=== PATIENT | female | born 1980 | race Caucasian/White ===

== ENCOUNTER → 2024-12-28 08:43 | Outpatient (BNVA) | payer OTHER, SELFPAY | PROVIDERS: Visit Provider Physician Assistant Surgical ==

== ENCOUNTER 2025-01-11 08:50 | Outpatient (AMB) | payer OTHER, SELFPAY ==
--- OUTSIDE RECORDS SUMMARY | 2025-01-11 09:03 | XMS_ITS | Data Portability ---
Author Organization [facility], [facility] Address [address] [place] [address] Care Team Providers Care Financing Analyst Name Role Phone JOSE FIGUEROA Primary Care Provider [phone] Assessment Encounter Date Assessment Date Assessment LastModified by Organization Details LastModified Time 08/26/2024 08/26/2024 43-year-old aewdp-fonp-hxxsygy t female presents today reporting on June 24, 2024 she fell off a horse injuring the radial aspect of her right wrist. She has had 2 negative sets of x-rays about her wrist so far, but with persistent significant pain at the snuffbox of her right wrist, as well as the base of the first metacarpal. Her x-rays today demonstrated a possible articular defect noted of the base of the first metacarpal, without any obvious evidence of scaphoid fracture. Due to her persistent radial sided right wrist pain, I recommended MRI to evaluate for possible cartilage defect of the base of the first metacarpal, as well as possible bony contusion of the right scaphoid bone. Will plan to follow-up in 2 to 3 weeks for review MRI, sooner if required Not available 08/26/2024 16:18:16 09/09/2024 09/09/2024 43-year-old runit-muxs-sraiqjm t female presents today for review MRI right wrist after an injury sustained on June 24, 2024 with MRI demonstrating no obvious evidence of fractures appreciated. She does have an incidental note of a ganglion cyst dorsally about her wrist, as well as an effusion of the pisotriquetral joint but these are more than likely incidental findings as she does not have any symptoms over these areas. At this point she may be dealing with some sequelae from her right wrist sprain. I recommended utilizing a thumb spica splint, and offered anti-inflammatorie s versus an oral steroid taper, but she was to pursue with the splint and activity modification. She will follow-up symptomatically going forward. Not available 09/09/2024 16:14:05 Plan of Treatment Reminders Order Date Submit Date Provider Last Modified By Organization Details Last Modified Time Details Appointments RECHECK 15 2024 03:15P Olena Amanda PA-C Not available Not available Not available Lab None recorded. Referral physical therapist referral - DIAGNOSIS : RIGHT POSTERIOR TEDONITIS EVAL AND TX: RIGHT POSTERIOR /FOOT TENDONITI S SPECIAL INSTRUCTI ONS: STRENTHEN ING FREQUENCY : 2-3 TIMES/WEE K DURACTION : 4-6 WEEKS 2024 025 [email or web address] Not available 01/08/2025 11:31:18 Procedures None recorded. Surgeries None recorded. Imaging XR, foot, 3 or more view - uc rm 5 r foot 3v 2024 025 [email or web address] [facility] Office, [address], [place], [address], 12/24/2024 10:24:14 XR, wrist, 3 or more view - room 105 3v R wrist + josue nurse intern views 2024 025 [email or web address] [facility] Office, [address], [place], [address], 09/14/2024 15:17:18 MRI, wrist, w/o contrast - Right wrist pain -- eval cartilage defect of the base of the 1st MC & bony contusion of scaphoid bone 2024 [email or web address], [address], [place], [address], 09/14/2024 15:17:19 Medication Orders diclofena c sodium 75 mg tablet,de layed release 2024 025 [id number], [address] [place] [address], [address], 01/08/2025 11:20:05 Patient TargetsNo targets recorded. Patient InstructionsNo instructions recorded. Reason for Referral Physical Therapist Referral for Tendinitis of right posterior tibial tendon DIAGNOSIS: RIGHT POSTERIOR TEDONITIS EVAL AND TX: RIGHT POSTERIOR/FOOT TENDONITISSPECIAL INSTRUCTIONS: STRENTHENING FREQUENCY: 2-3 TIMES/WEEKDURACTION: 4-6 WEEKS Referring Physician: Marion Amanda, Orthopedic Surgery, Encounter Date: 01/08/2025 Results Created Date Observation Date Name Description Value Unit Range Abnormal Flag Note LastModifiedBy Organization Detail LastModifiedTime 08/26/19 25 08/26/2024 XR, wrist , 3 or more view [email or web address] ?Encry pted=s hAaTro YD8dLq bEUv6g %2BXZw aYqtaq 0bqfl% 2Fg9IQ a4ajBk vP9nXo QUaueC m3YtLR FvZlJ J8mAn HZtai3 6h0745 AC0Kqb HWEUaW lKiQtr MwF INTERFACE [facility] [address], [place], [address], 08/26/2024 15:42:07 08/26/19 25 08/26/2024 XR, wrist , 3 or more view [email or web address] ?Encry pted=s hAaTro YD8dLq bEUv6g %2BXZw aYqtaq 0bqfl% 2Fg9IQ a4ajBk vP9nXo QUaueC m3YtLR FvZlgJ JJ8mAn HZtai3 5w3669 AC0Kqb HWEUaW lKiQtr MwF INTERFACE [facility] [address], [place], [address], 08/26/2024 15:42:09 09/08/19 25 09/05/2024 MRI, wrist , w/o contr ast No observ ation record ed. [email or web address] [facility] [address] [facility] [facility] [address], [place], [address], 09/15/2024 12:05:32 12/25/19 25 12/24/2024 XR, foot, 3 or more view [email or web address] ?Encry pted=s hAaTro YD8dLq bEUv6g %2BXZw aYqtaq 0bqfl% 2Fg9IQ a4ajBk vP9nXo QUaueC m3YtLR FvZlgJ JJ8mAn HZtai3 3c7835 AC0Kla H6GUqu gKiQtr MwF INTERFACE [facility] [address] [facility] [address], [place], [address], 12/24/2024 08:47:17 12/25/19 25 12/24/2024 XR, foot, 3 or more view [email or web address] ?Encry pted=s hAaTro YD8dLq bEUv6g %2BXZw aYqtaq 0bqfl% 2Fg9IQ a4ajBk vP9nXo QUaueC m3YtLR FvZlgJ [place] HZtai3 3g4006 AC0Kla H6GUqu gKiQtr MwF INTERFACE [facility] [address] [facility] [address], [place], [address], 12/24/2024 08:47:19 Result Notes Documentation Provider Name and Address Organization Details Recorded Time Xr, Wrist, 3 Or More View : [email or web address] Encrypted=wpMgEtcJP1bOdyN Uv6g%8TNRzeRynhm8dtkn%2Fg 0ECa8uyTzdZ9dPdXCqtvYo8Af LMCaWluUSN2uEzWXhoe75a758 1NR8MnpHIRSfPqJbDqxVlU Not Available [facility] 08/26/2024 15:42: 08 Xr, Wrist, 3 Or More View : [email or web address] Encrypted=phHvZnsXX8iXgvI Uv6g%9BHJyjWqnlp8egiz%2Fg 4YQc8stNdyX1gOpKCiuvWa5Jm YRPcAojWNB3mPhVIvmz14v072 1EW4QyoORLSuPzKnAzjFoT Not Available [facility] 08/26/2024 15:42: 09 Xr, Foot, 3 Or More View : [email or web address] Encrypted=tcHfPrbTM9yXwzZ Uv6g%6QAWrbNndwj3ooxa%2Fg 4DTh2opUrhS1jQcLNyyoTy5Zi MWFjKojTJT7jVbSCuwv73l398 0MK6OkdO7ODrfvYhFzlKyQ Not Available [facility] 12/24/2024 08:47: 18 Xr, Foot, 3 Or More View : [email or web address] Encrypted=loMkKymMK5mHcqI Uv6g%9AKNaiJphag9zlrv%2Fg 4SEi1uoMjuR3hAaKXnkfTh7Wl WXDpKbdLBU2yJtWBcik60l150 0NX4RwpX0TJyboIaAbjGgD Not Available [facility] 12/24/2024 08:47: 19 Problems Name Problem SNOMED Code Status Onset Date Resolution Date Notes Provider Name and Address Organization Details Recorded Time Sprain of right wrist [id number] Active 2024 Jason Lanier PA-C [address] [place] [address] [address], [place], [address] , [facility] 16:14:11 Problem Notes None recorded. Medical Equipment None Reported. Medications Name Sig Start Date Stop Date Status Note LastModified by Organization Details LastModified Time venlafaxine ER 37.5 mg capsule,exte nded release 24 hr TAKE 1 CAPSULE BY MOUTH EVERY DAY active Not Available Not Available No t Available venlafaxine ER 75 mg capsule,exte nded release 24 hr TAKE 1 CAPSULE BY MOUTH EVERY DAY active Not Available Not Available No t Available fluconazole 150 mg tablet TAKE 1 TABLET BY MOUTH ONCE FOR 1 DAY active Not Available Not Available No t Available rizatriptan 10 mg tablet PLEASE SEE ATTACHED FOR DETAILED DIRECTIONS active Not Available Not Available N ot Available propranolol 60 mg tablet TAKE 1 TABLET BY MOUTH TWICE A DAY FOR 30 DAYS active Not Available Not Available No t Available dextroamphet amine-amphet amine 20 mg tablet TAKE 1 TABLET BY MOUTH TWICE A DAY (IN THE MORNING AND 1 PM) DIRECTED 30 DAYS active Not Available Not Available No t Available diclofenac sodium 75 mg tablet,delay ed release Take 1 tablet twice a day by oral route for 14 days. 2024 active Not Available Not Available Not Avai lable azithromycin 500 mg tablet TAKE 1 TABLET BY MOUTH EVERY DAY FOR 5 DAYS active Not Available Not Available No t Available levonorgestr el 0.15 mg-ethinyl estradiol 30 mcg tablets,3 mos pack(91) TAKE 1 TABLET BY MOUTH EVERY DAY active Not Available Not Available No t Available topiramate 50 mg tablet TAKE 1 TABLET BY MOUTH AT BEDTIME FOR 1 WEEK THEN TAKE 1 TABLET TWICE A DAY DIRECTED active Not Available Not Available Not Available Vitals Date Recorded Body height Body mass index (BMI) Body weight Provider Name and Address Organization Details Last Updated DateTime 12/24/2024 165.1 cm 32.8 kg/m2 35812.7 g Andreia Collazo [facility] 12/24/2024 08:51:12 Date Recorded Body height Body mass index (BMI) Body weight Provider Name and Address Organization Details Last Updated DateTime 01/08/2025 165.1 cm 32.8 kg/m2 38217.7 g Andreia Collazo [facility] 01/08/2025 10:33:40 Social History None recorded. Functional Status None recorded. Mental Status None recorded. Family History Nothing Reported. Medical History No medical history recorded. Gynecological HistoryNo gynecological history recorded. Obstetrics History GPAL:G 0 P 0 0 0 0 Past Encounters Encounter ID Performer Location Encounter Start Date Encounter Closed Date Diagnosis/Indication Diagnosis SNOMED-CT Code Diagnosis ICD10 Code Diagnosis Note [id number] [facility]ATH[facility] Miller [address] [facility] [place] [address] 08/26/2024 15:31:34 09/14/2024 15:17:18 Pain of right wrist 3133350580 96909 M25.308 [id number] CATHY Miller [address] [place] [place] [address] 09/09/2024 15:56:23 09/24/2024 11:24:13 Pain of right wrist 5803074581 85618 M25.531 Sprain of right wrist 11 65441592 9112685 S63.501D The patient is ambulatory , but has weakness and/or instabilit y of their extremity which requires stabilizat ion from this semi-rigid /rigid orthosis to improve their function. Verbal and written instructio ns for their use and applicatio n of this item were given. patient was instructed that should the brace result in increased pain, decreased sensation, increased swelling or an overall worsening of their medical condition, to please contact our office immediatel y. [id number] CATHY [facility] [place] [address] [place] [address] 12/24/2024 08:27:26 12/31/2024 07:51:32 Pain in right foot 1743666743 42397 M79.671 Tendinitis of right posterior tibial tendon 7277949497 49335 M76.078 [id number] CATHY Carvalho [address] [place] [address] 01/08/2025 10:16:10 01/08/2025 11:22:32 Tendinitis of right posterior tibial tendon 1899906336 56691 M76.821 Health Concerns Section Related Observation LastModified by Organization Detai ls LastModified Time None Recorded Concern Status LastModified by Organization Details LastModified Time None Recorded Advance Directives Directive None Recorded Payers Insurance Date Sequence Insurance Name Policy Number Policy [place] Covered Member ID [place] Member ID Guarantor Name 01/05/2025 1 [facility] (MEDICAID HMO) [id number] Willow Argueta [id number] Willow Argueta Notes Date Note Type Note Provider Name and Address Organization Details Recorded Time 08/26/2024 text/html I am seeing this patient under the supervision of Dr. Mccormick who was available but who did not see the patient Chief Complaint: New evaluation for right wrist pain HPI: 43-year-old zdtqe-sabi-pirhidis female presents today reporting that while riding a horse, the horse began to lowered self to the ground to roll onto its back when she jumped off the horse landing onto her right wrist. This injury occurred on June 24, 2024. She has had persistent significant radial sided right wrist pain ever since. She reports her pain is 6 out of 10 intensity. It worsens with her [place] chores [place] the farm. She has been evaluated at an outside institution where x-rays were negative, and she was provided a splint but has not had any significant improvements in her pain. She presents today for further evaluation Jason Lanier PA-C [address], [place], [address], [facility] 08/26/2024 16:18:29 09/09/2024 text/html I am seeing this patient under the supervision of Dr. Mccormick who was available but who did not see the patient Chief Complaint: Review MRI right wrist after an injury sustained on June 24, 2024. HPI: 43-year-old pfeub-wbeg-qscpkwfk female presents today for review MRI right wrist after an injury sustained on June 24, 2024. MRI obtained of the right wrist on September 05, 2024 demonstrates no obvious evidence of fracture, there is an incidental note of a ganglion cyst dorsally, and an effusion noted of the pisotriquetral joint. Upon independent review, there is no evidence of scaphoid fracture, or articular surface defect noted of the base of the first metacarpal. She reports continued radial sided right wrist pain. Jason Lanier PA-C [address], [place], [address], [facility] 09/09/2024 16:14:22 12/24/2024 text/html Patient seen und er general supervision of Dr. Dr. Rivera who was available but who did not see the patient.HPI: Patient is a 44-year-old female who presents as urgent care walk-in today with complaint of right foot/ankle pain. This began a couple of weeks ago after she had run from a [employer] parking lot into the hospital to me an ambulance carrying her son. She tells me she had been wearing work boots and does not typically run. Thereafter has developed pain at the medial aspect of her ankle and the plantar aspect of her foot. She has difficulty weightbearing due to this. She denies any numbness or tingling or other injuriesPast family, medical, social history and review of systems has been reviewed, updated and is located in the patient s chart.Examination:Th e patient is well appearing and in no apparent distress. Alert and oriented x3. Gait is slightly antalgic on the right lower extremity. Right foot and ankle skin intact, no erythema edema or ecchymosis. She has tenderness to palpation medially along the posterior tibial tendon region as well as along the plantar aspect of her foot medially. Foot and ankle range of motion is intact. Distally neuromotor intact, sensation intact throughoutX-rays ordered, obtained and reviewed at [facility] including 3 views of the right foot which demonstrates no acute fractures or dislocationsImpressi on: 44-year-old female with right posterior tibial tendinitisPlan: Test findings with the patient. I recommended a brief course of immobilization as well as anti-inflammatory medications and activity modification. She will go into a walking boot and follow up in 3 weeks or so for recheck at which point if she is improved could consider physical therapy for strengthening program. All questions answeredThe patient is ambulatory, but has weakness and/or instability of their extremity which requires stabilization from this semi-rigid/rigid orthosis to improve their function.Verbal and written instructions for the use and application of this item were given. Patient was instructed that should the brace result in increased pain, decreased sensation, increased swelling or an overall worsening of their medical condition, to pelase contact our office immediately.[facility] speech recognition porter marina software was used to create portions of this document. An attempt at proofreading has been made to minimize errors. Please call for corrections. Marion Amanda PA-C [address], [place], [address], [facility] 12/24/2024 10:49:36 01/08/2025 text/html Patient seen und er general supervision of Dr. Dr. Rivera who was available but who did not see the patient.Clinical Update 01/08/25: Patient has been wearing the boot, feels much improved discomfort but still having some pain when out of the boot. Exam is unchanged as below Today we will begin to trasnsition her back to normal footwear, I am prescribing an anti inflammatory after discussion of risks and benefits for her continued pain, this is instead of a steroid dose pack today as she has had negative side effects from that in the past. We will initiate PT for strengthening program and follow up in 3-4 weeks for recheck, at which point if she is not improving would consider MRI of the right foot/ankle HPI: Patient is a 44-year-old female who presents as urgent care walk-in today with complaint of right foot/ankle pain. This began a couple of weeks ago after she had run from a [facility] parking lot into the hospital to me an ambulance carrying her son. She tells me she had been wearing work boots and does not typically run. Thereafter has developed pain at the medial aspect of her ankle and the plantar aspect of her foot. She has difficulty weightbearing due to this. She denies any numbness or tingling or other injuriesPast family, medical, social history and review of systems has been reviewed, updated and is located in the patient s chart.Examination:Th e patient is well appearing and in no apparent distress. Alert and oriented x3. Gait is slightly antalgic on the right lower extremity. Right foot and ankle skin intact, no erythema edema or ecchymosis. She has tenderness to palpation medially along the posterior tibial tendon region as well as along the plantar aspect of her foot medially. Foot and ankle range of motion is intact. Distally neuromotor intact, sensation intact throughoutX-rays ordered, obtained and reviewed at [facility] including 3 views of the right foot which demonstrates no acute fractures or dislocationsImpressi on: 44-year-old female with right posterior tibial tendinitisPlan: Test findings with the patient. I recommended a brief course of immobilization as well as anti-inflammatory medications and activity modification. She will go into a walking boot and follow up in 3 weeks or so for recheck at which point if she is improved could consider physical therapy for strengthening program. All questions answeredThe patient is ambulatory, but has weakness and/or instability of their extremity which requires stabilization from this semi-rigid/rigid orthosis to improve their function.Verbal and written instructions for the use and application of this item were given. Patient was instructed that should the brace result in increased pain, decreased sensation, increased swelling or an overall worsening of their medical condition, to pelase contact our office immediately.[place] speech recognition porter marina software was used to create portions of this document. An attempt at proofreading has been made to minimize errors. Please call for corrections. Marion Amanda PA-C [address] [facility] [address], [place], [address], [facility] 01/08/2025 11:22:30 OBGyn Episode No OBEpisode recorded.
--- NOTE | 2025-01-11 11:42 | A.OFFVIS_ITS ---
VS Expanded 01/11/25 11:59 Height 5 ft 5 in Weight 195 lb 2 oz BMI 32.5 Body Fat % 39.2 Body Fat Mass 76.6 Fat Free Mass 118.6 Visceral Fat Rating 9 Body Water % 43.4 Body Water Mass 84.6 Basal Metabolic Rate/Score 1,635 Intake Visit Reasons: TV SWL/MWL BMI 32.5 Allergies bupropion (From Wellbutrin) Allergy (Intermediate, Verified 01/11/25 11:42) Swelling amoxicillin Allergy (Mild, Verified 01/11/25 11:42) Hives Sulfa (Sulfonamide Antibiotics) Allergy (Mild, Verified 01/11/25 11:42) Hives Medication List - Last Reconciled 01/11/25 by Felipe Mccarty MD dextroamphetamine-amphetamine 20 mg (Adderall) 20 mg PO BID famotidine (Pepcid) 20 mg PO DAILY levonorgestrel (Mirena) intrauterine sumatriptan succinate 50 mg PO Q2-4H PRN venlafaxine ER 75 mg PO DAILY HPI HPI TV SWL/MWL BMI 32.5: Details: Start time: 11.40, End time: 12.25pm ?I spent 40 minutes speaking with the patient on the phone plus an additional 5 minutes reviewing and updating records for a total of 45 minutes HPI Comments Details: 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, [employer]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 Wakes up: 6am, Sleeps: 10pm Breakfast:6.30am (rice cakes with banana and peanut butter, or Atkins protein bar) Lunch: 12pm (pizza, salad with meat) Dinner: 7pm (meat, vegetables, starch) Snacks: 3pm (cheese and crackers) Exercise: has home bike and elliptical Beverages: Coffee: none, Green tea: (12oz/d with juice), soda: none, Juice: none, ETOH: none PFSH Medical History (Updated 01/11/25 @ 12:17 by Felipe Mccarty MD) Migraines Snoring Daytime somnolence ADHD DJD (degenerative joint disease) GERD (gastroesophageal reflux disease) BMI 32.0-32.9,adult Surgical History (Updated 12/28/24 @ 09:09 by Azalea Thakkar CMA) Hx of wisdom tooth extraction Family History (Updated 12/28/24 @ 09:11 by Azalea Thakkar CMA) Mother Breast cancer Hypertension Father AD (Alzheimer's disease) Son Autism Son Anxiety Acute depression Social History (Updated 12/28/24 @ 09:11 by Azalea Thakkar CMA) Alcohol intake: never Patient Tobacco Use Status: Never used Tobacco Physical Exam Vital Signs: BMI result Body Mass Index 32.5 Telehealth Telehealth Telehealth Platform: Telephone Location of provider rendering services: practice address Location of patient: address on file Patient Identification confirmed using: Name, : Yes Telehealth method: voice only Patient verbally consented to treatment: Yes Patient verbally consented to billing insurance company: Yes Patient informed of any privacy concerns related to visit: Yes Minutes spent on Phone/Video with Pt.: 45 Assessment & Plan Assessment & Plan (1) Obesity: Code(s): E66.9 - Obesity, unspecified Category: Medical Qualifiers: Body mass index: BMI 32.0-32.9 Obesity classification: adult class 1 ( BMI 30 - 34.9) Obesity type: due to excess calories Serious obesity comorbidity presence: without serious comorbidity Qualified Code(s): E66.811 - Obesity, class 1; E66.09 - Other obesity due to excess calories; Z68.32 - Body mass index [BMI] 32.0-32.9, adult Plan: 1. We discussed the potential side-effects of the Phentermine such as irritability, dry mouth, difficulty sleeping, dizziness, numbness in feet and high blood pressure. I asked her to get a blood pressure monitor and measure the blood pressure daily in the morning and evening. She needs to send the blood pressure readings daily and to call the office for blood pressure over 140/80 and she understands that. Stop the Adderal once you begin the Phentermine 2. You will receive a link of our software christiano to generate an individualized nutritional and exercise plan specific for you. Please send me a screenshot of the plans you will generate Meal to include lean meat (beef, fish, pork, turkey, chicken), or danish yogurt, or egg whites, or beans with a salad with olive oil and fruits (berries, pears, apples, kiwi). Avoid salt, breads, potatoes, rice, pasta, desserts. ?3. If you choose shakes, each shake would be drunk slowly, like coffee in a period of 2 hours. ?4. If you choose bars, cut each bar in 4 pieces and eat each piece in 30min ?to make each bar last 2 hours. ?5. I emphasized the importance of measuring accurately the food portion and measure it when serving the food in plate ?6. The meal portions include a specific number of forks of meat and salad. You always eat the meat portion but you can replace up to half of salad/vegetables portion with rice, potatoes or pasta, or a fruit ?if you like. The less you do it the better weight loss will be. ?7. One full-size fork is what it can be scooped on the fork without falling aside and not what can be bit with the fork. Use regular forks like those you find in a typical restaurant. ?8.? Please buy the body composition scale we discussed and send me weight measurements as soon as possible and then once a week. Always include your diet and exercise plan. 9. The best exercise choice would be to use your elliptical or stationary bike at home that can track calories. You can create and exercise plan with the [employer] christiano. ?10.?It is important of avoiding and for at least 18 months postoperatively and has been discussed at the infosession. ?11. Goal is to lose at least 1.5-2lbs per week ?12. Goal to lose at least 10% of your weight, which is about 20lbs. Minimum weight goal: 175lbs 13. Please follow the diet plan exactly without any change. If you don't like something about the plan or you feel hungry you need to communicate with me so I can help you revise the plan. You should not change the plan yourself. Medications: New phentermine must administer daily at 10am in the morning 37.5 mg PO DAILY 30 caps 0RF E66.09 - Other obesity due to excess calories, E66.811 - Obesity, class 1, Z68.32 - Body mass index [BMI] 32.0-32.9, adult
[2025-01-11 11:59] VITALS: BMI 32.5
== END 2025-01-11 12:27 | disposition home or self-care (01) ==
LOC: HO.HBS 08:50
PROVIDERS: PCP Family Medicine; Visit Provider Surgery
DX: E66.811 Obesity, class 1 (principal); E66.09 Other obesity due to excess calories; Z68.32 Body mass index [BMI] 32.0-32.9, adult
CPT/HCPCS: 99204

== ENCOUNTER 2025-01-19 15:02 | Outpatient (AMB) | payer OTHER, SELFPAY ==
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
--- OUTSIDE RECORDS SUMMARY | 2025-01-19 15:45 | XMS_ITS | Clinical Summary ---
Author Organization [facility] Address [address] [place] [address] Care Team Providers Care Ancillary Services Manager Therapy Name Role Phone Unavailable Primary Care Provider Unavailabl e Encounters Date Type Department Care Team Description 01/06/2025 9:00 AM EDT [facility] [address] [place] [address] Mer Moss Financial insecurity (Primary Dx) from Last 3 Months Social History Tobacco Use Types Packs/Day Years Used Date Smoking Tobacco: Never Assessed Housing Stability Answer Date Recorded What is your housing situation today? I have housing today, but I am worried about losing housing in the future 01/06/[address] you li ve. Do you have problems with any of the following? None of the above 01/06/2025 Food Insecurity Answer Date Recorded Within the past 12 months, y ou worried that your food would run out before you got money to buy more: Sometimes True 2024 Within the past 12 months,th e food you bought just didn't last and you didn't have enough money to get more: Not on file 01/06/2025 Transportation Answer Date Recorded In the past 12 months, has l ack of transportation kept you from medical appts, meetings, work or from getting things needed for daily living? No 01/06/2025 Utilities Answer Date Recorded In the past 12 months, has t he electric, gas, oil or water company threatened to shut off services in your home? No 01/06/2025 Internet Access Answer Date Recorded Internet Access Q1 Yes 01/06/2025 Internet Access Q2 Not on file 01/06/2025 Comments Unknown Sex and Gender Information Value Date Recorded Sex Assigned at Female 01/01/2025 12:15 PM EDT Legal Sex Female 11:55 AM EDT Gender Identity Female 01/01/2025 12:15 PM EDT Sexual Orientation Straight 01/06/2025 11 :38 AM EDT Plan of Treatment Health Maintenance Due Date Last Done Comments Depression Screening 1980 HIV Screening 1980 SDOH Screening 1980 Disability Screening 1980 Alcohol/Substance Use Screening 1992 Tobacco Screening 1992 Family Planning (PISQ) 12/19/1995 HPV Vaccines (1 - 3-dose series) 12/19/1995 Hepatitis C Screening 1998 DTaP/Tdap/Td Vaccines (1 - Tdap) 12/19/1999 Hepatitis B Vaccines (1 of 3 - 19+ 3-dose series) 12/19/1999 Pap Smear 2001 Cervical Cancer Screening 2010 HPV/Cotest 2010 Mammogram 2020 COVID-19 Vaccine (1 - 2023-2 5 season) 2024 Influenza Vaccine (#1) 2025 Zoster Vaccines (1 of 2) 2030 RSV Patients and Pa tients Aged 60 years or older (1 - 1-dose 75+ series) 12/19/2055 HIB Vaccines Aged Out No longer eligi ble based on patient's age to complete this topic Hepatitis A Vaccines Aged Out No long er eligible based on patient's age to complete this topic IPV Vaccines Aged Out No longer eligi ble based on patient's age to complete this topic Meningococcal B Vaccine Aged Out No l onger eligible based on patient's age to complete this topic Meningococcal Vaccine Aged Out No nicole nessa eligible based on patient's age to complete this topic Pneumococcal Vaccine: Pediat rics (0 to 5 Years) and At-Risk Patients (6 to 49) Years Aged Out No longer eligible b ased on patient's age to complete this topic RSV under 20 months Aged Out No longe r eligible based on patient's age to complete this topic Rotavirus Vaccines Aged Out No longer eligible based on patient's age to complete this topic
--- OUTSIDE RECORDS SUMMARY | 2025-01-19 15:45 | XMS_ITS ---
Author Name [facility] Organization Unknown Encounters Encounter Type Encounter Reason Primary Diagnosis Location Date Ambulatory [facility] 08/06/2024
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
== END 2025-01-19 15:28 | disposition home or self-care (01) ==
PROVIDERS: PCP Family Medicine; Referring Provider Family Medicine; Visit Provider Registered Nurse
DX: G43.909 Migraine, unspecified, not intractable, without status migrainosus (principal); R40.0 Somnolence
CPT/HCPCS: 99214

== ENCOUNTER → 2025-01-19 15:02 | Outpatient (BNVA) | payer OTHER, SELFPAY | PROVIDERS: PCP Family Medicine; Referring Provider Family Medicine; Visit Provider Registered Nurse | DX: R40.0 Somnolence (principal); G43.909 Migraine, unspecified, not intractable, without status migrainosus | CPT/HCPCS: 99212 ==

== ENCOUNTER 2025-05-03 16:14 | Outpatient (AMB) | payer OTHER, SELFPAY ==
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
--- OUTSIDE RECORDS SUMMARY | 2025-05-03 20:30 | XMS_ITS | Clinical Summary ---
Author Organization [facility] Address 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
== END 2025-05-03 17:05 | disposition home or self-care (01) ==
LOC: HO.HSM 16:15
PROVIDERS: PCP Family Medicine; Referring Provider Family Medicine; Visit Provider Registered Nurse
DX: G43.909 Migraine, unspecified, not intractable, without status migrainosus (principal); R40.0 Somnolence; F41.9 Anxiety disorder, unspecified; F32.A Depression, unspecified
CPT/HCPCS: 99214

== ENCOUNTER → 2025-05-03 16:14 | Outpatient (BNVA) | payer OTHER, SELFPAY | PROVIDERS: PCP Family Medicine; Referring Provider Family Medicine; Visit Provider Registered Nurse | DX: G43.909 Migraine, unspecified, not intractable, without status migrainosus (principal); R40.0 Somnolence; F41.9 Anxiety disorder, unspecified; F32.A Depression, unspecified | CPT/HCPCS: 99212 ==